=== PATIENT | male | born 1960 | race Caucasian/White ===

== ENCOUNTER 2017-11-02 11:55 | Observation (INO) | payer OTHER ==
[~2017-11-02] VITALS: Ht 175.3 cm; Wt 103.0 kg
[2017-11-02] VITALS (10 sets, daily range): BP systolic 97–123; BP diastolic 65–76; PULSE 76–112; RESP 16–20; TEMP 97.6–98.7; O2SAT 94–99
--- NOTE | 2017-11-02 12:09 | PD ---
HPI Chief Complaint: Syncope/Near-Syncope Time Seen by Provider: 12:08 Travel History International Travel<30 days: No Contact w/Intl Traveler<30days: No Traveled to known affect area: No History of Present Illness HPI 56-year-old male came to the emergency room with history of syncopal episode today after a series of coughing episode. He is here with his who heard a loud thud when she was in the bathroom and came out running and found him on the floor. As per her patient has been sick with cough for past 2 weeks. He went to the urgent care and was given an inhaler. Which he has been using. But patient says the cough is not getting better. No history of fever. Vital signs were stable in the emergency room. Patient has never had a syncopal episode before. Patient says that he does not recall passing out. But he was on the floor when he started to wake up. says that his color was somewhat pale and he was clammy. He was brought in by EMS. Patient does have a cardiac history in the past. He had a quadruple bypass 2 years ago. No history of chest pain. Patient did finish a course of Zithromax as prescribed by the urgent care. PFSH Past Medical History Narrative Medical List of his past medical, surgical, social and family history is reviewed from the nursing note. Hx Anticoagulant Therapy: Yes (ASA) Diabetes: Yes Social History Tobacco Use: No Allergies-Medications (Allergen,Severity, Reaction): Uncoded Allergies: PCN (Allergy, Unknown, 11/02/17) Comments List of his allergies to be from the nursing note. Reported Meds & Prescriptions Reported Meds & Active Scripts Active Reported Tradjenta (Linagliptin) 5 Mg Tab 5 Mg PO BID Metformin (Metformin HCl) 1,000 Mg Tab 1,000 Mg PO DAILY With a meal Lamotrigine 150 Mg Tab 150 Mg PO DAILY Atenolol 25 Mg Tab 25 Mg PO DAILY Aspirin 81 Mg Chew 81 Mg PO DAILY Allergy Relief (Loratadine) 10 Mg Tab 10 Mg PO DAILY Narrative Medication Waiting for the nurse to the medical reconciliation. Review of Systems Except as stated in HPI: all other systems reviewed are Neg Respiratory: Positive: Cough Neurologic: Positive: Syncope Physical Exam Narrative GENERAL: Awake, alert, moderate distress SKIN: Focused skin assessment warm/dry. HEAD: Atraumatic. Normocephalic. EYES: Pupils equal and round. No scleral icterus. No injection or drainage. ENT: No nasal bleeding or discharge. Mucous membranes pink and moist. NECK: Trachea midline. No JVD. CARDIOVASCULAR: Regular rate and rhythm. No murmur appreciated. RESPIRATORY: No accessory muscle use. Bilateral end expiratory wheeze GASTROINTESTINAL: Abdomen soft, non-tender, nondistended. Hepatic and splenic margins not palpable. MUSCULOSKELETAL: No obvious deformities. No clubbing. No cyanosis. No edema. NEUROLOGICAL: Awake and alert. No obvious cranial nerve deficits. Motor grossly within normal limits. Normal speech. PSYCHIATRIC: Appropriate mood and affect; insight and judgment normal. Data Data Last Documented VS Vital Signs Date Time Temp Pulse Resp B/P (MAP) Pulse Ox O2 Delivery O2 Flow Rate FiO2 11/02/17 14:13 99 Nasal Cannula 2.00 11/02/17 14:00 79 16 122/72 (89) 11/02/17 12:00 97.6 Orders Orders Complete Blood Count With Diff (11/02/17 12:19) Basic Metabolic Panel (Bmp) (11/02/17 12:19) B-Type Natriuretic Peptide (11/02/17 12:19) Prothrombin Time / Inr (Pt) (11/02/17 12:19) Troponin I (11/02/17 12:19) Iv Access Insert/Monitor (11/02/17 12:19) Electrocardiogram (11/02/17 12:19) Ecg Monitoring (11/02/17 12:19) Oximetry (11/02/17 12:19) Oxygen Administration (11/02/17 12:19) Chest, Single Ap (11/02/17 12:19) Sodium Chloride 0.9% Flush (Ns Flush) (11/02/17 12:30) Methylprednisolone So Succ Inj (Solumedr (11/02/17 12:30) Albuterol-Ipratropium Neb (Duoneb Neb) (11/02/17 12:30) Orthostatic Vital Signs (11/02/17 12:19) Ct Brain W/O Iv Contrast(Rout) (11/02/17 ) Admit Order (Ed Use Only) (11/02/17 14:30) Labs Laboratory Tests Test 11/02/17 12:30 1/27/18 12:40 Prothrombin Time 10.8 SEC Prothromb Time International Ratio 1.1 RATIO Blood Urea Nitrogen 10 MG/DL Creatinine 1.00 MG/DL Random Glucose 162 MG/DL Calcium Level 8.5 MG/DL Sodium Level 136 MEQ/L Potassium Level 4.7 MEQ/L Chloride Level 102 MEQ/L Carbon Dioxide Level 27.1 MEQ/L Anion Gap 7 MEQ/L Estimat Glomerular Filtration Rate 77 ML/MIN Troponin I LESS THAN 0.02 NG/ML B-Type Natriuretic Peptide 50 PG/ML White Blood Count 8.6 TH/MM3 Red Blood Count 4.31 MIL/MM3 Hemoglobin 13.0 GM/DL Hematocrit 38.6 % Mean Corpuscular Volume 89.5 FL Mean Corpuscular Hemoglobin 30.1 PG Mean Corpuscular Hemoglobin Concent 33.7 % Red Cell Distribution Width 12.2 % Platelet Count 214 TH/MM3 Mean Platelet Volume 7.7 FL Neutrophils (%) (Auto) 65.9 % Lymphocytes (%) (Auto) 13.1 % Monocytes (%) (Auto) 6.4 % Eosinophils (%) (Auto) 13.9 % Basophils (%) (Auto) 0.7 % Neutrophils # (Auto) 5.7 TH/MM3 Lymphocytes # (Auto) 1.1 TH/MM3 Monocytes # (Auto) 0.5 TH/MM3 Eosinophils # (Auto) 1.2 TH/MM3 Basophils # (Auto) 0.1 TH/MM3 CBC Comment AUTO DIFF Differential Total Cells Counted 100 Neutrophils % (Manual) 66 % Band Neutrophils % 1 % Lymphocytes % 20 % Monocytes % 6 % Eosinophils % 7 % Neutrophils # (Manual) 5.8 TH/MM3 Differential Comment FINAL DIFF MANUAL Platelet Estimate NORMAL Platelet Morphology Comment NORMAL Basophilic Stippling FAINT MDM Medical Decision Making Medical Screen Exam Complete: Yes Emergency Medical Condition: Yes Medical Record Reviewed: Yes Interpretation(s) Twelve-lead EKG was reviewed by me. Normal sinus rhythm, normal axis, poor R- wave progression, nonspecific ST-T wave changes. Heart rate of 78 bpm. Differential Diagnosis Cardiac arrhythmia, vasovagal episode, COPD exacerbation, pneumonia, intracranial bleed Narrative Course 1:53 PM blood test results are back. Patient has some eosinophilia. Chest x- rays negative and chemistry is within normal limits. CAT scan of the head appears to be within normal limit me. Waiting for the radiologist read. Patient was given DuoNeb and IV Solu-Medrol. Patient does have cardiac history. 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 He thinks he had an echocardiogram done a few weeks ago but does not know the report. I would prefer to admit this patient and watch him overnight for any arrhythmias. I discussed this with the patient and his and they agree. Awaiting for the hospitalist to call back. I did reassess him and his wheezing had significantly improved although there is still some end expiratory wheeze left. I'll order 2 more doses of albuterol. Procedures EKG Prior to Arrival: No Diagnosis Primary Impression: COPD exacerbation Additional Impressions: Syncope Qualified Codes: R55 - Syncope and collapse Eosinophilia Admitting Information Admitting Physician Requests: Observation Scripts [guaiFEN-COD 200-20 MG/10ML LIQ] 10 ML SYRP No Conflict Check 10 ML PO Q6H Y for COUGH for 10 Days, 0 Refills Prov: John Nunez MD 11/03/17 Prednisone (Prednisone) 20 Mg Tab 20 MG PO DAILY for cough MDD 20mg for 7 Days, #7 TAB 0 Refills one tablet daily Prov: John Nunez MD 11/03/17 Calderon Santos MD Nov 02, 2017 12:09
[2017-11-02] MEDS ORDERED: SODIUM CHLORIDE 0.9% FLUSH 10 ML FLUSH IVF PRN (12:30)
[2017-11-02] MEDS ORDERED: methylPREDNISolone SOD SUCC 125 MG/2 ML VIAL IV PUSH ONE (12:30)
[2017-11-02] MEDS: RESP: ALBUTEROL 2.5 MG/IPRATROPIUM 0.5 MG NEB (SCH) INH ×2 (12:45→12:46)
--- NOTE | 2017-11-02 12:48 | RADRPT ---
EXAM DATE/TIME: 11/02/2017 12:32 [facility] COMPARISON: No previous studies available for comparison. INDICATIONS : Cough, short of breath, chest pains with cough MEDICAL HISTORY : Diabetes mellitus type II. SURGICAL HISTORY : CABG. ENCOUNTER: Initial ACUITY: 1 week PAIN SCORE: 10/10 LOCATION: Bilateral chest FINDINGS: Post surgical changes related to prior CABG surgery. The heart size is normal. The pulmonary vasculat ure is normal. The lungs are clear. CONCLUSION: No evidence of acute cardiopulmonary disease. Omaira Crook MD on November 02, 2017 at 12:46 Board Certified Radiologist. This report was verified electronically.
[2017-11-02 12:50] LABS: CHLORIDE 102 MEQ/L (98-107); SODIUM (NA) 136 MEQ/L (136-145)
[2017-11-02 12:53] LABS: CALCIUM 8.5 MG/DL (8.5-10.1)
[2017-11-02 12:53] LABS: AUTOMATED NEUTROPHIL # 5.7 TH/MM3 (1.8-7.7); BASOPHIL # 0.1 TH/MM3 (0-0.2); BASOPHIL % 0.7 % (0.0-2.0); EOSINOPHIL # 1.2 TH/MM3 (0-0.4); EOSINOPHIL % 13.9 % (0.0-4.0); HEMATOCRIT 38.6 % (39.0-51.0); LYMPH % 13.1 % (9.0-44.0); LYMPHOCYTE # 1.1 TH/MM3 (1.0-4.8); MEAN CELL VOLUME 89.5 FL (80.0-100.0); MEAN CORPUSCULAR HEMOGLOBIN 30.1 PG (27.0-34.0); MEAN CORPUSCULAR HGB CONC 33.7 % (32.0-36.0); MEAN PLATELET VOLUME 7.7 FL (7.0-11.0); MONO % 6.4 % (0.0-8.0); MONOCYTE # 0.5 TH/MM3 (0-0.9); NEUT % 65.9 % (16.0-70.0); PLATELET COUNT 214 TH/MM3 (150-450); RED BLOOD COUNT 4.31 MIL/MM3 (4.50-5.90); RED CELL DISTRIBUTION WIDTH 12.2 % (11.6-17.2); WHITE BLOOD COUNT 8.6 TH/MM3 (4.0-11.0)
[2017-11-02 12:54] LABS: BICARBONATE 27.1 MEQ/L (21.0-32.0); BLOOD UREA NITROGEN 10 MG/DL (7-18); GLUCOSE,RANDOM 162 MG/DL (74-106)
[2017-11-02 12:55] LABS: INTERNATIONAL NORMALIZED RATIO 1.1 RATIO; PROTHROMBIN TIME - PATIENT 10.8 SEC (9.8-11.6)
[2017-11-02 12:57] LABS: GLOMERULAR FILTRATION RATE 77 ML/MIN (>89)
[2017-11-02 13:01] LABS: TROPONIN I LESS THAN 0.02 NG/ML (0.02-0.05)
[2017-11-02 13:10] LABS: BANDS 1 % (0-6); LYMPHOCYTES 20 % (9-44); MONOCYTES 6 % (0-8); NEUTROPHIL # MANUAL DIFF 5.8 TH/MM3 (1.8-7.7); POLYS (SEG NEUTROPHILS) 66 % (16-70)
--- NOTE | 2017-11-02 13:56 | RADRPT ---
EXAM DATE/TIME: 11/02/2017 13:13 [facility] COMPARISON: No previous studies available for comparison. INDICATIONS : Syncope after a coughing spell. RADIATION DOSE: 59.36 CTDIvol (mGy) MEDICAL HISTORY : Diabetes, daily aspirin SURGICAL HISTORY : None. ENCOUNTER: Initial ACUITY: 1 day PAIN SCALE: 0/10 LOCATION: cranial TECHNIQUE: Multiple contiguous axial images were obtained of the head. Using automated exposure control and adj ustment of the mA and/or kV according to patient size, radiation dose was kept as low as reasonably a chievable to obtain optimal diagnostic quality images. DICOM format image data is available electro nically for review and comparison. FINDINGS: CEREBRUM: The ventricles are normal for age. No evidence of midline shift, mass lesion, hemorrhage or acute in farction. No extra-axial fluid collections are seen. POSTERIOR FOSSA: The cerebellum and brainstem are intact. The 4th ventricle is midline. The cerebellopontine angle i s unremarkable. EXTRACRANIAL: Moderate partial desiccation of the ethmoid sinuses and moderate sized air fluid levels in the spheno id sinuses. SKULL: The calvaria is intact. No evidence of skull fracture. CONCLUSION: 1. No acute intracranial findings. 2. Ethmoid and sphenoid sinusitis. 3. 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 Petr Mcfarlane MD on November 02, 2017 at 13:50 Board Certified Radiologist. This report was verified electronically.
[2017-11-02] MEDS ORDERED: LORA-650 PO (14:08)
[2017-11-02] MEDS ORDERED: ASPI-516 PO (14:08)
[2017-11-02] MEDS ORDERED: TRAD5TAB PO (14:08)
[2017-11-02] MEDS ORDERED: ATEN25TA PO (14:08)
[2017-11-02] MEDS ORDERED: LAMO150T PO (14:08)
[2017-11-02] MEDS ORDERED: [UNRECOGNIZED DRUG - OTHER] PO (14:08)
[2017-11-02] MEDS ORDERED: APOTEX (14:08)
[2017-11-02] MEDS ORDERED: METF1000 PO (14:08)
[2017-11-02] MEDS ORDERED: GLUCAGON 1 MG/ML VIAL OTHER PRN (15:15)
[2017-11-02] MEDS ORDERED: PILL SPLITTER OTHER PRN (15:15)
[2017-11-02] MEDS ORDERED: DEXTROSE 50% IN WATER 50 ML VIAL(D50) IV PUSH PRN (15:15)
[2017-11-02] MEDS: RESP: ALBUTEROL 2.5 MG/IPRATROPIUM 0.5 MG NEB (SCH) NEB ×2 (16:20→21:34)
[2017-11-02] MEDS: AZITHROMYCIN INJ 500 MG in SODIUM CHLOR 0.9% 250 ML INJ 250 ML IV SCH (16:37)
[2017-11-02] MEDS: guaiFENesin/CODEINE SYRUP 200 MG/20 MG/10 ML CUP PO PRN (16:37)
[2017-11-02] MEDS: INSULIN ASPART SUPPLEMENTAL SCALE SQ SCH ×2 (17:10→21:36)
--- NOTE | 2017-11-02 19:19 | HHI.HP ---
HPI Service [facility] Primary Care Physician Yana Greenfield MD Admission Diagnosis syncope, COPD exacerbation Chief Complaint: cough for 2 weeks with episode of syncope today Travel History International Travel<30 Days: No Contact w/Intl Traveler <30 Da: No Traveled to Known Affected Are: No History of Present Illness 56-year-old male came to the emergency room with history of syncopal episode today after a series of coughing episode. He is here with his who heard a loud thud when she was in the bathroom and came out running and found him on the floor. Patient has been sick with cough for past 2 weeks. He went to the urgent care and was given an inhaler and was on zithromax Which he has been using. But patient says the cough is not getting better. No history of fever. Vital signs were stable in the emergency room. Patient has never had a syncopal episode before. Patient says that he does not recall passing out. But he was on the floor when he started to wake up. says that his color was somewhat pale and he was clammy. He was brought in by EMS. Patient does have a cardiac history in the past. He had a quadruple bypass 2 years ago. No history of chest pain. Patient did finish a course of Zithromax as prescribed by the urgent care. In er did receive albuterol and solumedrol with continued wheezing . Will admit to observe and monitor. Review of Systems Respiratory: COMPLAINS OF: Cough, Wheezing Other syncope Past Family Social History Past Medical History dm cad seizure in past Past Surgical History knee ,gallbladder,cad s/p bypass 2015 Reported Medications [Hydrobromide] Unknown Dose PO Tradjenta (Linagliptin) 5 Mg Tab 5 Mg PO BID Metformin (Metformin HCl) 1,000 Mg Tab 1,000 Mg PO DAILY With a meal Lamotrigine 150 Mg Tab 150 Mg PO DAILY Atenolol 25 Mg Tab 25 Mg PO DAILY [Apotex] 5 Mg Aspirin 81 Mg Chew 81 Mg PO DAILY Allergy Relief (Loratadine) 10 Mg Tab 10 Mg PO DAILY Allergies: Uncoded Allergies: PCN (Allergy, Unknown, 11/02/17) Social History NS,ND Physical Exam Vital Signs Vital Signs Date Time Temp Pulse Resp B/P (MAP) Pulse Ox O2 Delivery O2 Flow Rate FiO2 11/02/17 16:00 97.8 76 16 111/75 (87) 96 11/02/17 15:15 11/02/17 14:54 76 16 120/75 (90) 96 Nasal Cannula 2.00 11/02/17 14:13 99 Nasal Cannula 2.00 11/02/17 14:00 79 16 122/72 (89) 99 Nasal Cannula 2.00 11/02/17 13:25 82 16 105/65 (78) 87 18 109/70 (83) 91 20 97/66 (76) 11/02/17 12:47 97 Nasal Cannula 2.00 11/02/17 12:46 Nasal Cannula 2.00 11/02/17 12:34 98 Nasal Cannula 2.00 11/02/17 12:00 97.6 81 20 123/72 (89) 96 Physical Exam GENERAL: This is a well-nourished, well-developed patient, in no apparent distress. SKIN: No rashes, ecchymoses or lesions. Cool and dry. HEAD: Atraumatic. Normocephalic. No temporal or scalp tenderness. EYES: Pupils equal round and reactive. Extraocular motions intact. No scleral icterus. No injection or drainage. ENT: Nose without bleeding, purulent drainage or septal hematoma. Throat without erythema, tonsillar hypertrophy or exudate. Uvula midline. Airway patent. NECK: Trachea midline. No JVD or lymphadenopathy. Supple, nontender, no meningeal signs. CARDIOVASCULAR: Regular rate and rhythm without murmurs, gallops, or rubs. RESPIRATORY: Bilateral wheezing and rhonchi. GASTROINTESTINAL: Abdomen soft, non-tender, nondistended. No hepato-splenomegaly , or palpable masses. No guarding. MUSCULOSKELETAL: Extremities without clubbing, cyanosis, or edema. No joint tenderness, effusion, or edema noted. No calf tenderness. Negative Homans sign bilaterally. NEUROLOGICAL: Awake and alert. Cranial nerves II through XII intact. Motor and sensory grossly within normal limits. Five out of 5 muscle strength in all muscle groups. Normal speech. Laboratory Laboratory Tests Test 11/02/17 12:30 11/02/17 12:40 Prothrombin Time 10.8 Prothromb Time International Ratio 1.1 Blood Urea Nitrogen 10 Creatinine 1.00 Random Glucose 162 Calcium Level 8.5 Sodium Level 136 Potassium Level 4.7 Chloride Level 102 Carbon Dioxide Level 27.1 Anion Gap 7 Estimat Glomerular Filtration Rate 77 Troponin I LESS THAN 0.02 B-Type Natriuretic Peptide 50 White Blood Count 8.6 Red Blood Count 4.31 Hemoglobin 13.0 Hematocrit 38.6 Mean Corpuscular Volume 89.5 Mean Corpuscular Hemoglobin 30.1 Mean Corpuscular Hemoglobin Concent 33.7 Red Cell Distribution Width 12.2 Platelet Count 214 Mean Platelet Volume 7.7 Neutrophils (%) (Auto) 65.9 Lymphocytes (%) (Auto) 13.1 Monocytes (%) (Auto) 6.4 Eosinophils (%) (Auto) 13.9 Basophils (%) (Auto) 0.7 Neutrophils # (Auto) 5.7 Lymphocytes # (Auto) 1.1 Monocytes # (Auto) 0.5 Eosinophils # (Auto) 1.2 Basophils # (Auto) 0.1 CBC Comment AUTO DIFF Differential Total Cells Counted 100 Neutrophils % (Manual) 66 Band Neutrophils % 1 Lymphocytes % 20 Monocytes % 6 Eosinophils % 7 Neutrophils # (Manual) 5.8 Differential Comment FINAL DIFF MANUAL Platelet Estimate NORMAL Platelet Morphology Comment NORMAL Basophilic Stippling FAINT Result Diagram: 11/02/17 1240 11/02/17 1230 Imaging Last 24 hours Impressions Chest X-Ray 11/02/17 1219 Signed Impressions: Service Date/Time: Thursday, November 02, 2017 12:32 - CONCLUSION: No evidence of acute cardiopulmonary disease. Omaira Crook MD Head CT 11/02/17 0000 Signed Impressions: Service Date/Time: Thursday, November 02, 2017 13:13 - CONCLUSION: 1. No acute intracranial findings. 2. Ethmoid and sphenoid sinusitis. 3. 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 Petr Mcfarlane MD Course in er given fluid Caprini VTE Risk Assessment Caprini VTE Risk Assessment: Mod/High Risk (score >= 2) Caprini Risk Assessment Model Point Value = 1 Point Value = 2 Point Value = 3 Point Value = 5 Age 41-60 Minor surgery BMI > 25 kg/m2 Swollen legs Varicose veins or History of unexplained or recurrent spontaneous Oral contraceptives or hormone replacement Sepsis (< 1 month) Serious lung disease, including pneumonia (< 1 month) Abnormal pulmonary function Acute myocardial infarction Congestive heart failure (< 1 month) History of inflammatory bowel disease Medical patient at bed rest Age 61-74 Arthroscopic surgery Major open surgery (> 45 min) Laparoscopic surgery (> 45 min) Malignancy Confined to bed (> 72 hours) Immobilizing plaster cast Central venous access Age >= 75 History of VTE Family history of VTE Factor V Leiden Prothrombin [id number] Lupus anticoagulant Anticardiolipin antibodies Elevated serum homocysteine Heparin-induced thrombocytopenia Other congenital or acquired thrombophilia Stroke (< 1 month) Elective arthroplasty Hip, pelvis, or leg fracture Acute spinal cord injury (< 1 month) Prophylaxis Regimen Total Risk Factor Score Risk Level Prophylaxis Regimen 0-1 Low Early ambulation 2 Moderate Order ONE of the following: *Sequential Compression Device (SCD) *Heparin 5000 units SQ BID 3-4 Higher Order ONE of the following medications: *Heparin 5000 units SQ TID *Enoxaparin/Lovenox 40 mg SQ daily (WT < 150 kg, CrCl > 30 mL/min) *Enoxaparin/Lovenox 30 mg SQ daily (WT < 150 kg, CrCl > 10-29 mL/min) *Enoxaparin/Lovenox 30 mg SQ BID (WT < 150 kg, CrCl > 30 mL/min) AND/OR *Sequential Compression Device (SCD) 5 or more Highest Order ONE of the following medications: *Heparin 5000 units SQ TID (Preferred with Epidurals) *Enoxaparin/Lovenox 40 mg SQ daily (WT < 150 kg, CrCl > 30 mL/min) *Enoxaparin/Lovenox 30 mg SQ daily (WT < 150 kg, CrCl > 10-29 mL/min) *Enoxaparin/Lovenox 30 mg SQ BID (WT < 150 kg, CrCl > 30 mL/min) AND *Sequential Compression Device (SCD) Assessment and Plan Problem List: (1) Acute bronchitis ICD Codes: J20.9 - Acute bronchitis, unspecified Plan: patient history consistent with acute bronchitis with possible underlying COPD will continue nebulizer with addition solumedrol and IV zithromax (2) Syncope ICD Codes: R55 - Syncope and collapse Status: Acute Plan: probably related to coughing spell as he did fall CT head was done which was negative Assessment and Plan as above will monitor probable discharge tomorrow Code Status full Discussed Condition With patient Problem Qualifiers (1) Syncope: Qualified Codes: R55 - Syncope and collapse John Nunez MD Nov 02, 2017 19:19
[2017-11-02] MEDS ORDERED: PATIENT OWN: (Linagliptin (Tradjenta) 5 MG) PO SCH (21:00)
[2017-11-02] MEDS: methylPREDNISolone SOD SUCC 125 MG/2 ML VIAL IV PUSH SCH (21:37)
[2017-11-03] VITALS: BP 127/80; PULSE 107; RESP 20; TEMP 97; O2SAT 95
[2017-11-03] MEDS: guaiFENesin/CODEINE SYRUP 200 MG/20 MG/10 ML CUP PO PRN (01:56)
[2017-11-03] MEDS: RESP: ALBUTEROL 2.5 MG/IPRATROPIUM 0.5 MG NEB (SCH) NEB ×3 (03:38→15:02)
[2017-11-03 04:00] VITALS: BP 115/57; PULSE 115; RESP 20; TEMP 97.4; O2SAT 94
[2017-11-03] MEDS: methylPREDNISolone SOD SUCC 125 MG/2 ML VIAL IV PUSH SCH ×2 (05:04→13:49)
[2017-11-03 08:00] VITALS: BP 143/91; PULSE 109; RESP 18; TEMP 96.7; O2SAT 96
[2017-11-03] MEDS: INSULIN ASPART SUPPLEMENTAL SCALE SQ SCH ×3 (08:07→16:46)
[2017-11-03] MEDS ORDERED: lamoTRIgine 100 MG TAB PO SCH (09:00)
[2017-11-03] MEDS ORDERED: ATENOLOL 25 MG TAB PO SCH (09:00)
[2017-11-03] MEDS ORDERED: metFORMIN HCL 500 MG TAB PO SCH (09:00)
[2017-11-03] MEDS ORDERED: LORATADINE 10 MG TAB PO SCH (09:00)
[2017-11-03] MEDS ORDERED: ASPIRIN 81 MG CHEW TAB PO SCH (09:00)
[2017-11-03 09:28] VITALS: O2SAT 97
[2017-11-03] MEDS ORDERED: ZITH500T PO (11:32)
[2017-11-03] MEDS ORDERED: PRED20 PO ×2 (11:34→11:42)
[2017-11-03 11:36] LABS: AUTOMATED NEUTROPHIL # 11.9 TH/MM3 (1.8-7.7); HEMATOCRIT 39.6 % (39.0-51.0); HEMOGLOBIN 13.1 GM/DL (13.0-17.0); LYMPHOCYTE # 0.9 TH/MM3 (1.0-4.8); MEAN CELL VOLUME 91.1 FL (80.0-100.0); MEAN CORPUSCULAR HEMOGLOBIN 30.2 PG (27.0-34.0); MEAN CORPUSCULAR HGB CONC 33.1 % (32.0-36.0); MONO % 2.8 % (0.0-8.0); MONOCYTE # 0.4 TH/MM3 (0-0.9); NEUT % 90.2 % (16.0-70.0); PLATELET COUNT 209 TH/MM3 (150-450); RED BLOOD COUNT 4.35 MIL/MM3 (4.50-5.90); RED CELL DISTRIBUTION WIDTH 12.4 % (11.6-17.2); WHITE BLOOD COUNT 13.2 TH/MM3 (4.0-11.0)
[2017-11-03] MEDS ORDERED: VENTAER INH (11:39)
[2017-11-03] MEDS ORDERED: guaiFEN-COD 200-20 MG/10ML LIQ PO (11:42)
--- NOTE | 2017-11-03 11:47 | HHI.DS ---
Discharge Summary Admission Date Nov 02, 2017 at 14:32 Admitting Diagnosis syncope, COPD exacerbation (1) Acute bronchitis Diagnosis: Principal ICD Codes: J20.9 - Acute bronchitis, unspecified (2) Syncope Diagnosis: Secondary ICD Codes: R55 - Syncope and collapse Status: Acute Brief History 56-year-old male came to the emergency room with history of syncopal episode today after a series of coughing episode. He is here with his who heard a loud thud when she was in the bathroom and came out running and found him on the floor. Patient has been sick with cough for past 2 weeks. He went to the urgent care and was given an inhaler and was on zithromax Which he has been using. But patient says the cough is not getting better. No history of fever. Vital signs were stable in the emergency room. Patient has never had a syncopal episode before. Patient says that he does not recall passing out. But he was on the floor when he started to wake up. says that his color was somewhat pale and he was clammy. He was brought in by EMS. Patient does have a cardiac history in the past. He had a quadruple bypass 2 years ago. No history of chest pain. Patient did finish a course of Zithromax as prescribed by the urgent care. In er did receive albuterol and solumedrol with continued wheezing . Will admit to observe and monitor. CBC/BMP: 11/03/17 1100 11/02/17 1230 Significant Findings Laboratory Tests Test 11/02/17 12:30 11/02/17 12:40 11/03/17 11:00 Random Glucose 162 MG/DL (74-106) Estimat Glomerular Filtration Rate 77 ML/MIN (>89) Troponin I LESS THAN 0.02 NG/ML Red Blood Count 4.31 MIL/MM3 (4.50-5.90) 4.35 MIL/MM3 (4.50-5.90) Hematocrit 38.6 % (39.0-51.0) Eosinophils (%) (Auto) 13.9 % (0.0-4.0) Eosinophils # (Auto) 1.2 TH/MM3 (0-0.4) Eosinophils % 7 % (0-4) Basophilic Stippling FAINT (NORMAL) White Blood Count 13.2 TH/MM3 (4.0-11.0) Neutrophils (%) (Auto) 90.2 % (16.0-70.0) Lymphocytes (%) (Auto) 7.0 % (9.0-44.0) Neutrophils # (Auto) 11.9 TH/MM3 (1.8-7.7) Lymphocytes # (Auto) 0.9 TH/MM3 (1.0-4.8) Imaging Last 24 hours Impressions Chest X-Ray 11/02/17 1219 Signed Impressions: Service Date/Time: Thursday, November 02, 2017 12:32 - CONCLUSION: No evidence of acute cardiopulmonary disease. Omaira Crook MD PE at Discharge GENERAL: SKIN: Warm and dry. HEAD: Atraumatic. Normocephalic. EYES: Pupils equal and round. No scleral icterus. No injection or drainage. ENT: No nasal bleeding or discharge. Mucous membranes pink and moist. NECK: Trachea midline. No JVD. CARDIOVASCULAR: Regular rate and rhythm. RESPIRATORY: No accessory muscle use. Clear to auscultation. Breath sounds equal bilaterally. GASTROINTESTINAL: Abdomen soft, non-tender, nondistended. Hepatic and splenic margins not palpable. MUSCULOSKELETAL: Extremities without clubbing, cyanosis, or edema. No obvious deformities. NEUROLOGICAL: Awake and alert. No obvious cranial nerve deficits. Motor grossly within normal limits. Five out of 5 muscle strength in the arms and legs. Normal speech. PSYCHIATRIC: Appropriate mood and affect; insight and judgment normal. Hospital Course Patient admitted with bilateral wheezing and with probable cough induced syncope . Patient started on zithromax ,solumedrol and nebulizer with improvement in symptoms . Wheezing and cough improved also add cough med with codeine . Patient without any dizziness or syncope. Will send note to PCP and will discharge on zithromax ,prednisone 20 for 1 week and cough medication. Pt Condition on Discharge: Good Discharge Disposition: Discharge Home Discharge Instructions DIET: Follow Instructions for: Heart Healthy Diet Activities you can perform: Regular-No Restrictions New Medications: [guaiFEN-COD 200-20 MG/10ML LIQ] () 10 ML SYRP 10 ML PO Q6H PRN for COUGH for 10 Days, 0 Refills Changed Medications: Prednisone (Prednisone) 20 Mg Tab 20 MG PO DAILY for cough MDD 20mg for 7 Days, #7 TAB 0 Refills (Medication details modified) one tablet daily Continued Medications: Albuterol 18 GM Inh (Ventolin Hfa 18 GM Inh) 90 Mcg/Act Aer 2 PUFF INH Q4-6H PRN for SHORTNESS OF BREATH for 7 Days, #1 INHALER 0 Refills use qid prn Aspirin (Aspirin) 81 Mg Chew 81 MG PO DAILY, TAB 0 Refills Atenolol (Atenolol) 25 Mg Tab 25 MG PO DAILY for Blood Pressure Management, #30 TAB Azithromycin (Zithromax) 500 Mg Tab 500 MG PO DAILY for Infection MDD 500 for 7 Days, #7 TAB 0 Refills Lamotrigine (Lamotrigine) 150 Mg Tab 150 MG PO DAILY for Control Seizures, #30 TAB 0 Refills Linagliptin (Tradjenta) 5 Mg Tab 5 MG PO BID for Blood Sugar Management, #30 TAB 0 Refills Loratadine (Allergy Relief) 10 Mg Tab 10 MG PO DAILY, TAB Metformin (Metformin) 1,000 Mg Tab 1000 MG PO DAILY for Blood Sugar Management, #30 TAB 0 Refills With a meal Additional Information Patient to be discharged after receiving his IV zithromax scheduled for 4 PM medications sent to [facility] in [place]. John Nunez MD Nov 03, 2017 11:47
[2017-11-03 11:54] LABS: CALCIUM 8.8 MG/DL (8.5-10.1)
[2017-11-03 11:55] LABS: BICARBONATE 24.3 MEQ/L (21.0-32.0)
[2017-11-03 11:59] LABS: CREATININE 1.3 MG/DL (0.60-1.30)
[2017-11-03 12:00] VITALS: BP 141/79; PULSE 102; RESP 18; TEMP 97.5; O2SAT 95
--- NOTE | 2017-11-03 12:08 | EKG ---
Date Performed: 11/02/2017 Time Performed: 12:39:06 PTAGE: 56 years EKG: Sinus rhythm NORMAL ECG NO PREVIOUS TRACING DOCTOR: Jarad Eason Interpretating Date/Time 11/03/2017 12:05:35
[2017-11-03 16:00] VITALS: BP 133/79; PULSE 108; RESP 18; TEMP 97.2; O2SAT 95
[2017-11-03] MEDS: AZITHROMYCIN INJ 500 MG in SODIUM CHLOR 0.9% 250 ML INJ 250 ML IV SCH (16:29)
== END 2017-11-03 18:20 | disposition home or self-care (01) ==
LOC: PHED 11:55 → PHEDA 14:32 → PH3A 15:07
PROVIDERS: ADMIT Internal Medicine; ATTEND Internal Medicine
DX: J20.9 Acute bronchitis, unspecified (principal); J44.1 Chronic obstructive pulmonary disease with (acute) exacerbation; J44.0 Chronic obstructive pulmonary disease with (acute) lower respiratory infection; R55 Syncope and collapse; E11.9 Type 2 diabetes mellitus without complications; I25.10 Atherosclerotic heart disease of native coronary artery without angina pectoris; D72.1 Eosinophilia; J32.2 Chronic ethmoidal sinusitis; J32.3 Chronic sphenoidal sinusitis; Z95.1 Presence of aortocoronary bypass graft
CPT/HCPCS: 70450; 71045; 80048; 82948; 83880; 84484; 85007; 85025; 85027; 85610; 93005; 94640; 94664; 96365; 96366; 96372; 96375; 96376; 97162; 99285; G0378; G8987; G8988; J0456; J1815; J2930; J7050